=== PATIENT | female | born 1980 | race Caucasian/White ===

== ENCOUNTER 2018-04-22 23:39 | Emergency (ER) | payer BC, OTHER ==
[~2018-04-22] VITALS: Ht 165.1 cm; Wt 72.7 kg
[~2018-04-22 23:39] MED LIST: AURALGAN 54 MG/10 ML OT; BIRTH CONTROL PILLS; FLEXERIL 1010 MG/TAB PO; NEXIUM 40MG40 MG PO; PRENATAL1 TA4 PO; ZITHROMAX Z PA250 MG PO
[2018-04-23 00:17] VITALS: TEMP 98
[2018-04-23 01:19] VITALS: BP 113/78; PULSE 73
== END 2018-04-23 01:25 | disposition home or self-care (01) ==
LOC: COL.ER 23:39
DX: J06.9 Acute upper respiratory infection, unspecified (principal); Z90.89 Acquired absence of other organs